=== PATIENT | male | born 1990 | race American Indian/Alaskan Native ===

== ENCOUNTER 2021-10-29 20:25 | Emergency (ER) | payer SELFPAY ==
[2021-10-29 21:37] VITALS: BP 143/94
== END 2021-10-30 01:35 | disposition left against medical advice (07) ==
LOC: ED 20:25
DX: S61.411A Laceration without foreign body of right hand, initial encounter (principal); Z53.21 Procedure and treatment not carried out due to patient leaving prior to being seen by health care provider; W25.XXXA Contact with sharp glass, initial encounter; Y93.89 Activity, other specified; Y92.89 Other specified places as the place of occurrence of the external cause; Y99.8 Other external cause status